=== PATIENT | female | born 1940 | race Caucasian/White ===

== ENCOUNTER 2017-11-08 14:42 | Inpatient (IN) | payer OTHER ==
[~2017-11-08] VITALS: Ht 149.9 cm; Wt 66.2 kg
[~2017-11-08 14:42] MED LIST: CORGARD40 MG PO; COUMADIN2.5 MG PO; Coumadin Daily Dose PO; HYZAAR 100-11 TABLET PO; HYZAAR 50-121 TABLET PO; Habitrol,Nicoderm CQ TD; LIPITOR40 MG PO; Lipitor PO; NICODERM CQ1 EAC1 TD; OS-CAL 500+D T1 EAC1 PO; OSCAL, OYSTER500 MG PO; PERCOCET 5/31 TABLET PO; PRESERVISION T1 EACH PO; REFRESH PLUS1 EACH BOTH EYES; TYLENOL EXTRA500 MG PO; TYLENOL PM1 CAPLET PO; Tears Naturale II,Ar BOTH EYES; VISTARIL25 MG PO; Vicodin,Norco 5/325 PO
[2017-11-08 16:00] LABS: BASOPHIL (%) 0.2 % (0-1); EOSINOPHIL (%) 0.1 % (0-5); HEMATOCRIT 38.6 % (36.0-46.0); HEMOGLOBIN 12.7 G/DL (11.9-15.5); IMMATURE GRANULOCYTE (%) 0.4 % (0.0-0.7); LYMPHOCYTE COUNT 0.9 K/uL (1.0-2.8); MCH 30.2 PG (29.0-34.0); MCHC 32.9 G/DL (30.0-36.0); MCV 91.7 FL (83-99); MONOCYTE (%) 10.5 % (3-12); MONOCYTE COUNT 1.5 K/uL (0-0.8); NEUTROPHIL (%) 82.8 % (45-76); NEUTROPHIL COUNT 11.7 K/uL (1.8-6.4); PLATELET COUNT 185 K/uL (156-360); RBC DIS.WIDTH-CV 12.5 % (11.8-14.6); RBC DIS.WIDTH-SD 42.4 % (39-53); RED BLOOD COUNT 4.21 M/uL (3.80-5.20); WHITE BLOOD COUNT 14.2 K/uL (4.1-10.2)
[2017-11-08 16:09] LABS: ALBUMIN 4.2 g/dL (3.2-4.8); CHLORIDE 94 mEq/L (99-109); POTASSIUM 3.3 mEq/L (3.7-5.4); SODIUM 134 mEq/L (136-147)
[2017-11-08 16:10] LABS: MAGNESIUM 1.8 mg/dL (1.3-2.7)
[2017-11-08 16:11] LABS: GLUCOSE 134 mg/dL (70-99)
[2017-11-08 16:12] LABS: TOTAL PROTEIN 7.5 g/dL (6.4-8.3)
[2017-11-08 16:13] LABS: TOTAL BILIRUBIN 0.5 mg/dL (0.0-1.0)
[2017-11-08 16:15] LABS: ALKALINE PHOSPHATASE 65 IU/L (3-129); GFR ESTIMATE (CALCULATED) 57 mL/min/
[2017-11-08 16:16] LABS: UREA NITROGEN (BUN) 36 mg/dL (9-23)
[2017-11-08 16:17] LABS: AST (GOT) 33 IU/L (2-34)
[2017-11-08 16:18] LABS: ALT (GPT) 15 IU/L (3-49)
[2017-11-08 16:21] LABS: TROP-I INTERPRETATION NEGATIVE; TROPONIN-I 0.04 ng/mL (0.0-0.30)
[2017-11-08 18:30] LABS: APPEARANCE TURBID ((CLEAR)); BILIRUBIN NEGATIVE; BLOOD NEGATIVE; COLOR AMBER ((YELLOW)); GLUCOSE (STRIP) NEGATIVE; KETONES 20; LEUKOCYTES LARGE; NITRITE NEGATIVE; PROTEIN (STRIP) 100; SPECIFIC GRAVITY 1.015 (1.000-1.030); UROBILINOGEN 0.2 MG/DL (0.2-1.0)
[2017-11-08 18:36] LABS: BACTERIA RARE /HPF; EPITHELIAL CELLS RARE /HPF; MUCUS TRACE /LPF; RED BLOOD CELLS 0-5 /HPF (0-5); UCUL ADDED? YES; WHITE BLOOD CELLS TNTC /HPF (0-5)
[2017-11-08] MEDS ORDERED: CRESTOR5 MG PO (19:23)
[2017-11-08] MEDS ORDERED: TYLENOL EXTRA500 MG PO (19:24)
[2017-11-08] MEDS ORDERED: TYLENOL PM EX-1 EACH PO (19:24)
[2017-11-08] MEDS ORDERED: OCEAN NASAL 0.645 ML BOTH NARES (19:25)
[2017-11-08] MEDS ORDERED: BLUE EMU TP (19:26)
[2017-11-08 23:15] VITALS: BP 132/63
[2017-11-09 00:57] LABS: TROP-I INTERPRETATION NEGATIVE; TROPONIN-I 0.03 ng/mL (0.0-0.30)
[2017-11-09 03:59] VITALS: BP 115/57
[2017-11-09 06:31] LABS: HEMATOCRIT 34.5 % (36.0-46.0); MCH 29.6 PG (29.0-34.0); MCHC 31.9 G/DL (30.0-36.0); PLATELET COUNT 173 K/uL (156-360); RBC DIS.WIDTH-CV 12.6 % (11.8-14.6); RBC DIS.WIDTH-SD 43.2 % (39-53); RED BLOOD COUNT 3.71 M/uL (3.80-5.20); WHITE BLOOD COUNT 10.2 K/uL (4.1-10.2)
[2017-11-09 06:54] LABS: ALBUMIN 3.1 G/DL (3.2-4.8); ALKALINE PHOSPHATASE 50 IU/L (3-129); ALT (GPT) 12 IU/L (3-49); AST (GOT) 21 IU/L (2-34); CHLORIDE 99 MEQ/L (99-109); CREATININE 0.7 MG/DL (0.6-1.3); DIRECT BILIRUBIN 0.1 mg/dL (0.0-0.3); GFR ESTIMATE (CALCULATED) > 59 mL/min/; GLUCOSE 133 mg/dL (70-99); POTASSIUM 3.4 MEQ/L (3.7-5.4); SODIUM 136 MEQ/L (136-147); TOTAL BILIRUBIN 0.4 MG/DL (0.0-1.0); TOTAL PROTEIN 5.4 G/DL (6.4-8.3); UREA NITROGEN (BUN) 27 mg/dL (9-23)
[2017-11-09 07:28] VITALS: BP 116/54
[2017-11-09 07:47] LABS: TROP-I INTERPRETATION NEGATIVE; TROPONIN-I 0.05 ng/mL (0.0-0.30)
[2017-11-09 16:10] VITALS: BP 147/57
[2017-11-09 19:38] VITALS: BP 110/51
[2017-11-10 00:01] VITALS: BP 103/51
[2017-11-10 03:50] VITALS: BP 111/53
[2017-11-10 07:00] VITALS: BP 122/60
[2017-11-10 08:51] LABS: HEMOGLOBIN 10.8 G/DL (11.9-15.5); MCH 30.1 PG (29.0-34.0); MCHC 32.7 G/DL (30.0-36.0); MCV 91.9 FL (83-99); PLATELET COUNT 183 K/uL (156-360); RBC DIS.WIDTH-CV 12.3 % (11.8-14.6); RBC DIS.WIDTH-SD 41.7 % (39-53); RED BLOOD COUNT 3.59 M/uL (3.80-5.20); WHITE BLOOD COUNT 15.6 K/uL (4.1-10.2)
[2017-11-10 09:15] LABS: POTASSIUM 3.3 mEq/L (3.7-5.4); SODIUM 139 mEq/L (136-147)
[2017-11-10 09:16] LABS: CHLORIDE 105 mEq/L (99-109)
[2017-11-10 09:17] LABS: GLUCOSE 148 mg/dL (70-99)
[2017-11-10 09:21] LABS: CREATININE 0.7 mg/dL (0.6-1.3); GFR ESTIMATE (CALCULATED) > 59 mL/min/
[2017-11-10 09:22] LABS: UREA NITROGEN (BUN) 24 mg/dL (9-23)
[2017-11-10 10:30] LABS: C DIFF TOXIN NEGATIVE (NEGATIVE)
[2017-11-10 11:06] VITALS: BP 111/54
[2017-11-10] MEDS ORDERED: PREDNISONE10 MG PO (11:35)
[2017-11-10] MEDS ORDERED: CEPHALEXIN500 MG PO (11:35)
[2017-11-10] MEDS ORDERED: ADVAIR HFA120 INHALA IH (11:35)
[2017-11-10] MEDS ORDERED: KEFLEX500 MG PO (11:36)
[2017-11-10 15:11] VITALS: BP 115/64
== END 2017-11-10 16:52 | disposition home or self-care (01) | DRG 690 ==
LOC: EME 14:42 → 5SOUTH 21:21 → EDOF 21:21 → ENRESERV 21:23 → 5SOUTH 23:14
PROVIDERS: Emergency Medicine; Hospitalist; Physician Assistant Medical
DX: N30.00 Acute cystitis without hematuria (principal); R78.81 Bacteremia; B96.20 Unspecified Escherichia coli [E. coli] as the cause of diseases classified elsewhere; J44.1 Chronic obstructive pulmonary disease with (acute) exacerbation; R33.9 Retention of urine, unspecified; E87.6 Hypokalemia; I10 Essential (primary) hypertension; E78.00 Pure hypercholesterolemia, unspecified; R19.7 Diarrhea, unspecified; K80.20 Calculus of gallbladder without cholecystitis without obstruction; M47.816 Spondylosis without myelopathy or radiculopathy, lumbar region; R09.02 Hypoxemia; Z87.440 Personal history of urinary (tract) infections; Z87.891 Personal history of nicotine dependence; Z96.643 Presence of artificial hip joint, bilateral; Z60.2 Problems related to living alone; Z83.3 Family history of diabetes mellitus; Z82.49 Family history of ischemic heart disease and other diseases of the circulatory system
CPT/HCPCS: 71046; 74176; 76705; 78227; 80048; 80053; 80076; 81003; 83605; 83735; 84484; 85025; 85027; 87040; 87077; 87086 GA; 87186; 87493; 87801; 93005; 94640; 94640 76; 94799; 99202; 99281; 99285; A9537; J0696; J1644; J2405; J2805; J2920; J7030